=== PATIENT | male | born 1990 | race Native Hawaiian/Other Pacific Islander ===

== ENCOUNTER 2016-12-22 17:57 | Emergency (ER) | payer BC ==
[~2016-12-22] VITALS: Ht 177.8 cm; Wt 92.1 kg
== END 2016-12-22 19:59 | disposition home or self-care (01) ==
LOC: ED 17:57
DX: S67.195A Crushing injury of left ring finger, initial encounter (principal); S61.305A Unspecified open wound of left ring finger with damage to nail, initial encounter; W23.0XXA Caught, crushed, jammed, or pinched between moving objects, initial encounter; Y92.098 Other place in other non-institutional residence as the place of occurrence of the external cause
CPT/HCPCS: 99281

== ENCOUNTER 2018-04-21 09:29 | Outpatient (CLI) | payer OTHER | END 2018-04-21 22:42 | disposition home or self-care (01) | LOC: LABW 09:29 | DX: A09 Infectious gastroenteritis and colitis, unspecified (principal) | CPT/HCPCS: 87015; 87045; 87324; 87328; 87329; 87449; 87899 ==

== ENCOUNTER 2019-10-11 04:39 | Emergency (ER) | payer OTHER ==
[~2019-10-11] VITALS: Ht 180.3 cm; Wt 94.3 kg
[2019-10-11 04:57] VITALS: TEMP 97.7
[2019-10-11 05:44] LABS: PLATELET COUNT 270 K/uL (142-355)
[2019-10-11 05:54] LABS: POTASSIUM 3.7 mmol/L (3.6-5.2)
[2019-10-11 08:20] VITALS: BP 135/71
== END 2019-10-11 08:20 | disposition home or self-care (01) ==
LOC: ED 04:39
PROVIDERS: Emergency Medicine
DX: K52.9 Noninfective gastroenteritis and colitis, unspecified (principal)
CPT/HCPCS: 80053; 81000; 82150; 82272; 83630; 83690; 85027; 87324; 87449; 96360; 96375; 99284; J2550; Q9963

== ENCOUNTER 2023-03-29 19:34 | Emergency (ER) | payer OTHER ==
[~2023-03-29] VITALS: Ht 180.3 cm; Wt 97.5 kg
[2023-03-29 19:35] VITALS: TEMP 98.1
[2023-03-29 21:20] VITALS: BP 132/78
== END 2023-03-29 21:20 | disposition home or self-care (01) ==
LOC: ED 19:34
PROC: 0HQ1XZZ Repair Face Skin, External Approach (ICD-10-PCS; principal; 2023-03-29)
DX: S01.112A Laceration without foreign body of left eyelid and periocular area, initial encounter (principal); W22.8XXA Striking against or struck by other objects, initial encounter
CPT/HCPCS: 99282

== ENCOUNTER 2023-04-07 18:31 | Emergency (ER) | payer OTHER ==
[~2023-04-07] VITALS: Ht 180.3 cm; Wt 98.4 kg
[2023-04-07 18:48] VITALS: BP 135/75; TEMP 98
== END 2023-04-07 19:40 | disposition home or self-care (01) ==
LOC: ED 18:31
DX: Z48.02 Encounter for removal of sutures (principal)